=== PATIENT | female | born 1955 | race Two or more races ===

== ENCOUNTER → 2017-11-07 | Outpatient (CLI) | payer OTHER ==
[~2017-11-07] MED LIST: ACET500T33 PO; AMOX500C PO; CALC500T54 PO; CHOL100016 PO; HYDR-2758 PO; IBUP-1060 PO; LISI1TAB3 PO; METF500T4 PO; POTA20TA12 PO; SIMV20TA3 PO
--- NOTE | 2017-11-07 14:19 | KCIC ---
Bilateral digital screening mammograms: Reason for examination: Routine screening. Comparison is made to previous studies dated back to 01/30/2013 and 02/01/2012. Interpretation was made with the benefit of CAD. The skin and nipples show no abnormalities. No abnormal axillary lymph nodes are seen. The breast parenchyma shows scattered fibroglandular density. (Breast density: Category B.) There are no dominant masses, suspicious calcifications or architectural distortions. Some benign calcifications are present. Impression: No evidence of malignancy. Recommend routine screening. BI-RADS category 2: Benign "Our facility is accredited by the [employer] Mammography Program." This patient's information has been entered into a reminder system for the patient to be notified with the results of her examination and a target date for the next mammogram. Electronically signed by: Francy Gmoez MD (11/07/2017 2:16 PM) [facility]
== END | disposition home or self-care (01) ==
LOC: KCIC MAMMO 10:45
PROVIDERS: ATTEND Obstetrics & Gynecology
DX: Z12.31 Encounter for screening mammogram for malignant neoplasm of breast (principal)
CPT/HCPCS: G0202; 77067

== ENCOUNTER → 2018-07-25 | Outpatient (CLI) | payer OTHER, MEDICARE ==
[~2018-07-25] MED LIST changes: +CELE200C PO; +FERR325T14 PO; +METF500T16 PO; -METF500T4 PO; +TRAM50TA PO
[2018-07-25 08:55] LABS: BILIRUBIN,URINE NEGATIVE (NEG); CLARITY,URINE CLEAR; COLOR,URINE YELLOW; NITRITE,URINE NEGATIVE (NEG); PROTEIN,URINE NEGATIVE (NEG-TRACE)
[2018-07-25 09:17] LABS: BASO % 0 % (0-3); EOS # 0.2 x10^3/uL (0.0-0.7); EOS % 2 % (0-3); HEMATOCRIT 35.5 % (36.0-47.0); HEMOGLOBIN 11.9 g/dL (12.0-15.5); LYMPH # 1.4 x10^3/uL (1.0-4.8); LYMPH % 19 % (24-48); MEAN CORPUSCULAR HEMOGLOBIN 28 pg (25-35); MEAN CORPUSCULAR HGB CONC 34 g/dL (31-37); MEAN CORPUSCULAR VOLUME 84 fL (79-100); MONO # 0.4 x10^3/uL (0.0-1.1); MONO % 6 % (0-9); NEUT # 5.2 x10^3uL (1.8-7.7); NEUT % 72 % (31-73); PLATELET COUNT 236 x10^3/uL (140-400); RED BLOOD COUNT 4.21 x10^6/uL (3.50-5.40); RED CELL DISTRIBUTION WIDTH 14.2 % (11.5-14.5); WHITE BLOOD COUNT 7.2 x10^3/uL (4.0-11.0)
[2018-07-25 09:29] LABS: ALBUMIN 3.6 g/dL (3.4-5.0); CALCIUM 9.4 mg/dL (8.5-10.1); CREATININE 0.8 mg/dL (0.6-1.0); POTASSIUM 3.7 mmol/L (3.5-5.1)
[2018-07-25 09:30] LABS: PROTHROMBIN TIME PATIENT 12.9 SEC (11.7-14.0)
[2018-07-25 09:32] LABS: BACTERIA,URINE FEW /HPF (0-FEW); SQUAMOUS EPITHELIAL CELL,UR FEW /LPF
--- NOTE | 2018-07-25 11:54 | EKG ---
[facility] [address] [place] [address] Test Date: 2018-07-25 Test Time: 11:48:27 Pat Name: ALBA HARDEN Department: Room: Gender: F Marketing Reporting Analyst: MADDY : 1955 Requested By: TAMIA SALES Order Number: [id number] Reading MD: Serg Pagan MD Measurements Intervals Mcdonald Rate: 76 P: -42 TN: 154 QRS: 8 QRSD: 64 T: 42 QT: 356 QTc: 405 Interpretive Statements SINUS RHYTHM Electronically Signed On 07-25-2018 12:38:08 CDT by Serg Pagan MD
--- NOTE | 2018-07-25 16:34 | RAD ---
AP and Lateral Views of the Chest 07/25/2018 12:54 PM Indication: PRE OP RIGHT LEFT KNEE REPLACEMENT ON 08/15/18
HX OF HYPERTENSION Comparison: None Findings: There is no focal consolidation or infiltrate identified. The cardiomediastinal silhouette is within normal limits. There is no evidence of pneumothorax or pleural effusion. No acute osseous abnormalities are identified. Impression: No evidence of acute cardiopulmonary process. Electronically signed by: Ebenezer Pacheco MD (07/25/2018 4:31 PM) [facility]
[2018-07-26 04:18] LABS: HEMOGLOBIN A1C 5.6 % (4.8-5.6)
== END | disposition home or self-care (01) ==
LOC: SURGPAT 11:43
PROVIDERS: ATTEND Orthopaedic Surgery
DX: Z01.818 Encounter for other preprocedural examination (principal); I10 Essential (primary) hypertension; E11.9 Type 2 diabetes mellitus without complications; Z90.710 Acquired absence of both cervix and uterus
CPT/HCPCS: 36415; 71046; 80048; 81001; 82040; 82306; 83036; 85025; 85610; 85651; 85730; 87086; 87641; 93005

== ENCOUNTER → 2018-08-11 | Outpatient (CLI) | payer MEDICARE, OTHER ==
--- NOTE | 2018-08-11 14:45 | CARD ---
MR#: [id number] Date of Study: 08/11/2018 Ordering Physician: BHUMI ROD, Referring Physician: BHUMI ROD, Tech: Susi Clark INESSA APPROVED REPORT EXAM: Two-dimensional and M-mode echocardiogram with Doppler and color Doppler. Other Information Quality : Fair INDICATION Hypertension/HCVD Pre-Op 2D DIMENSIONS Left Atrium(2D)2.7 (1.6-4.0cm)IVSd0.9 (0.7-1.1cm) Aortic Root(2D)2.2 (2.0-3.7cm)LVDd4.0 (3.9-5.9cm) LVOT Diameter2.0 (1.8-2.4cm)PWd0.9 (0.7-1.1cm) LVDs3.1 (2.5-4.0cm)FS (%) 30.0 % SV32.4 mlLVEF(%)60.0 (>50%) Aortic Valve AoV Peak Tony.149.1cm/sAoV VTI29.7cm AO Peak GR.8.9mmHgLVOT Peak Tony.142.8cm/s LVOT VTI 27.07cmAO Mean GR.5mmHg PAT (VMAX)3.34wj6FKD (VTI)2.98cm2 Mitral Valve MV E Sggzwilu714.2cm/sMV A Kdvplucc987.2cm/s E/A Ratio0.8 LEFT VENTRICLE The left ventricle is normal size. There is normal left ventricular wall thickness. The left ventricu lar systolic function is normal. The Ejection Fraction is 60-65%. There is normal LV segmental wall m otion. Transmitral Doppler flow pattern is Grade I-abnormal relaxation pattern. RIGHT VENTRICLE The right ventricle is normal size. The right ventricular systolic function is normal. ATRIA The left atrium size is normal. The right atrium size is normal. The interatrial septum is intact wit h no evidence for an atrial septal defect or patent foramen ovale as noted on 2-D or Doppler imaging. AORTIC VALVE The aortic valve is calcified but opens well. Doppler and Color Flow revealed trace aortic regurgitat ion. There is no significant aortic valvular stenosis. MITRAL VALVE The mitral valve is calcified but opens well. There is no evidence of mitral valve prolapse. There is no mitral valve stenosis. Doppler and Color Flow revealed no mitral valve regurgitation noted. TRICUSPID VALVE The tricuspid valve is normal in structure and function. Doppler and Color Flow revealed trace tricus pid regurgitation. There is no tricuspid valve stenosis. PULMONIC VALVE The pulmonic valve is not well visualized. Doppler and Color Flow revealed no pulmonic valvular regur gitation. There is no pulmonic valvular stenosis. GREAT VESSELS The aortic root is normal in size. The ascending aorta is normal in size. The IVC is normal in size a nd collapses >50% with inspiration. PERICARDIAL EFFUSION There is no evidence of significant pericardial effusion. Critical Notification Critical Value: No <Conclusion> The left ventricular systolic function is normal. The Ejection Fraction is 60-65%. There is normal LV segmental wall motion. Transmitral Doppler flow pattern is Grade I-abnormal relaxation pattern. Trace aortic regurgitation. Trace tricuspid regurgitation. There is no evidence of significant pericardial effusion. Signed by : Ayden Hernandez, Electronically Approved : 08/11/2018 14:44:06
== END | disposition home or self-care (01) ==
LOC: ECHO 12:49
PROVIDERS: ATTEND Internal Medicine Cardiovascular Disease
DX: Z01.818 Encounter for other preprocedural examination (principal); I10 Essential (primary) hypertension; E11.9 Type 2 diabetes mellitus without complications; E78.5 Hyperlipidemia, unspecified; Z90.710 Acquired absence of both cervix and uterus
CPT/HCPCS: 93306

== ENCOUNTER → 2019-03-13 | Outpatient (CLI) | payer MEDICARE, OTHER ==
[2018-08-18 13:09] VITALS: BP 105/59
[~2019-03-13] MED LIST changes: +ASPI325T11 PO; +ASPI325T8 PO; -HYDR-2758 PO; +HYDR-2761 PO; +OXYC1TAB15 PO; +SERT50TA PO
[2019-03-13 14:01] LABS: BILIRUBIN,URINE NEGATIVE (NEG); CLARITY,URINE CLEAR; COLOR,URINE YELLOW; NITRITE,URINE NEGATIVE (NEG); PROTEIN,URINE NEGATIVE (NEG-TRACE); UROBILINOGEN,URINE 0.2 mg/dL (0.2 mg/dL)
[2019-03-13 14:07] LABS: BACTERIA,URINE 0 /HPF (0-FEW); RBC,URINE 0 /HPF (0-2); SQUAMOUS EPITHELIAL CELL,UR OCC /LPF
[2019-03-13 14:29] LABS: BASO % 1 % (0-3); EOS # 0.3 x10^3/uL (0.0-0.7); EOS % 4 % (0-3); HEMATOCRIT 35.7 % (36.0-47.0); HEMOGLOBIN 11.5 g/dL (12.0-15.5); LYMPH % 26 % (24-48); MEAN CORPUSCULAR HEMOGLOBIN 27 pg (25-35); MEAN CORPUSCULAR HGB CONC 32 g/dL (31-37); MEAN CORPUSCULAR VOLUME 84 fL (79-100); MONO # 0.5 x10^3/uL (0.0-1.1); MONO % 7 % (0-9); NEUT % 64 % (31-73); PLATELET COUNT 228 x10^3/uL (140-400); RED BLOOD COUNT 4.26 x10^6/uL (3.50-5.40); RED CELL DISTRIBUTION WIDTH 14.6 % (11.5-14.5); WHITE BLOOD COUNT 7.9 x10^3/uL (4.0-11.0)
[2019-03-13 14:43] LABS: ALBUMIN 3.5 g/dL (3.4-5.0); CALCIUM 9.9 mg/dL (8.5-10.1); CREATININE 0.8 mg/dL (0.6-1.0); POTASSIUM 4.4 mmol/L (3.5-5.1)
== END | disposition home or self-care (01) ==
LOC: SURGPAT 13:15
PROVIDERS: ATTEND Orthopaedic Surgery
DX: Z01.818 Encounter for other preprocedural examination (principal); M17.11 Unilateral primary osteoarthritis, right knee
CPT/HCPCS: 36415; 80048; 81001; 82040; 82306; 83036; 85025; 85610; 85651; 85730; 87086; 87641

== ENCOUNTER 2019-04-03 05:35 | Inpatient (IN) | payer MEDICARE, OTHER ==
--- NOTE | 2019-04-02 16:41 | PDOC1 ---
History and Physical Date of Admission Date of Admission 04/03/2019 Identification/Chief Complaint Chief Complaint Right knee pain Source Source: Chart review History of Present Illness History of Present Illness 64-year-old who had a left total knee arthroplasty in July 2018. She is doing great with that. She is almost off of the cane at times. The right knee is now the one that bothers her. We discussed the potential for right total knee arthroplasty for her end-stage right knee osteoarthritis. She has previously had nonoperative treatment for the arthritis in the right knee. Past Medical History Cardiovascular: HTN, Hyperlipidemia Endocrine: Diabetes Past Surgical History Past Surgical History: Total hip replacement, Total knee replacement (left knee July 2018), Hysterectomy Family History Family History: Alcohol Abuse, Diabetes, Other Social History Smoke: Quit ALCOHOL: none Drugs: None Current Medications Current Medications Current Medications Ondansetron HCl (Zofran) 4 mg PRN Q6HRS PRN IV NAUSEA/VOMITING; Start 04/03/19 at 07:00; Stop 04/04/19 at 06:59 Fentanyl Citrate (Fentanyl 2ml Vial) 25 mcg PRN Q5MIN PRN IV MILD PAIN; Start 04/03/19 at 07:00; Stop 04/04/19 at 06:59 Fentanyl Citrate (Fentanyl 2ml Vial) 50 mcg PRN Q5MIN PRN IV MODERATE TO SEVERE PAIN; Start 04/03/19 at 07:00; Stop 04/04/19 at 06:59 Morphine Sulfate (Morphine Sulfate) 1 mg PRN Q10MIN PRN IV SEVERE PAIN; Start 04/03/19 at 07:00; Stop 04/04/19 at 06:59 Ringer's Solution 1,000 ml @ 30 mls/hr Q24H IV ; Start 04/03/19 at 07:00; Stop 04/03/19 at 18:59 Lidocaine HCl (Xylocaine-Mpf 1% 2ml Vial) 2 ml PRN 1X PRN ID PRIOR TO IV START; Start 04/03/19 at 07:00; Stop 04/04/19 at 06:59 Hydromorphone HCl (Dilaudid) 0.5 mg PRN Q10MIN PRN IV SEV PAIN, Second choice; Start 04/03/19 at 07:00; Stop 04/04/19 at 06:59 Prochlorperazine Edisylate (Compazine) 5 mg PACU PRN PRN IV NAUSEA, MRX1; Start 04/03/19 at 07:00; Stop 04/04/19 at 06:59 Morphine Sulfate 5 mg/Ketorolac Tromethamine 30 mg/Ropivacaine 60 ml/Epinephrine HCl 0.5 mg/Sodium Chloride 100 ml @ 100 mls/hr 1X ONCE INT ART ; Start 04/03/19 at 06:00; Stop 04/03/19 at 06:59 Active Scripts Active Reported Zoloft (Sertraline Hcl) 50 Mg Tablet 1 Tab PO DAILY Aspirin 325 Mg Tablet 1 Tab PO DAILY Ferrous Sulfate 325 Mg Tablet 325 Mg PO DAILY Celebrex (Celecoxib) 200 Mg Capsule 200 Mg PO PRN DAILY PRN 30 Days Vitamin D3 (Cholecalciferol (Vitamin D3)) 1,000 Unit Tab.chew 1,000 Unit PO BID Lisinopril-Hctz 10-12.5 Mg Tab (Lisinopril/Hydrochlorothiazide) 1 Each Tablet 1 Each PO DAILY Simvastatin 20 Mg Tablet 40 Mg PO HS Metformin Hcl 500 Mg Tablet 500 Mg PO BID Allergies Allergies: Coded Allergies: No Known Drug Allergies (Unverified , 02/19/14) Physical Exam General: Alert, Cooperative, No acute distress HEENT: Atraumatic Heart: RRR Abdomen: Soft Extremities: No clubbing, No cyanosis, No edema, Normal pulses, Other (The RIGHT knee shows a mildly antalgic gait. There is varus alignment. No masses. No detectable effusion. Tenderness on the joint lines. Range of motion is 5-115 degrees. There is crepitus with range of motion, and pain at the extremes of motion. The knee is stable to varus and valgus stress without subluxation or laxity. Muscle strength is slightly weak for the quadriceps 4+/5 which may be due to pain or avoidance, and does not seem neurogenic, and the muscle tone and bulk is slightly decreased. The hamstring strength is 5/5. The skin is normal with no scars, rashes, lesions or ulcers. Light touch sensation is intact. No edema and no varicosities. Dorsalis pedis pulse is intact and capillary refill is normal.) Skin: No rashes, No breakdown, No significant lesion Neuro: Normal speech, Sensation intact Images Images [facility] [address] [place] [address] IMAGING REPORT Signed PATIENT: ALBA HARDEN ACCOUNT: [id number] : 1955 LOCATION: [facility] AGE: 63 SEX: F EXAM STATUS: REG CLI ORD. PHYSICIAN: TAMIA SALES MD REASON: PROCEDURE: KNEE RIGHT 3V EXAM: 1. AP, lateral and merchant view right knee 2. AP view left knee DATE: 02/08/2019 1:47 PM INDICATION: RIGHT KNEE PAIN FOR A LONG TIME. NO KNOWN INJURY. PT HAD LEFT KNEE REPLACED LAST YEAR COMPARISON: No Prior FINDINGS: Right knee: Right knee osteophytes arthritis with moderate medial compartment joint space narrowing and mild lateral compartment joint space narrowing with tricompartmental osteophytes. Small right knee joint effusion. Bilateral patellofemoral joint space narrowing with otherwise neutral patellar tracking. Decreased bone mineral density. Single AP view left knee demonstrates changes of left total knee arthroplasty, in good alignment without definite hardware complication. IMPRESSION: 1. Right knee joint osteoarthritis, medial compartment predominance Electronically signed by: Elieser Layne MD (02/08/2019 3:24 PM) [facility] DICTATED and SIGNED BY: ELIESER LAYNE MD DATE: 02/08/19 1524 VTE Prophylaxis Ordered VTE Prophylaxis Devices: Yes VTE Pharmacological Prophylaxi: Yes Assessment/Plan Assessment/Plan She and I discussed the risks benefits and alternatives to a right total knee arthroplasty. She is doing well with her left total knee arthroplasty. She still occasionally uses a cane, because of the right knee arthritis. I recommended right total knee arthroplasty. We discussed the potential risks of infection, neurovascular injury, bleeding, blood clots, need for revision surgery, or other potential surgical or anesthetic complications. all of her questions about surgery were answered and she desires to proceed. We can schedule that at a mutually convenient date. She denies medical or metal sensitivity.she did have some skin issues with the left total knee, such as blisters and we will be very careful to protect the soft tissues when we do her right knee arthroplasty. Her left knee has sizes 4 left bicruciate stabilized Journey II BCS Oxinium femoral component, size 4 left Journey nonporous tibial baseplate, size 3-4 11 mm left Journey II BCS XLPE articular insert, 32 mm oval Ellen II resurfacing patellar component TAMIA SALES MD April 02, 2019 16:41
[2019-04-03] VITALS (9 sets, daily range): BP systolic 93–116; BP diastolic 50–67
[~2019-04-03] VITALS: Ht 172.7 cm; Wt 98.9 kg
[~2019-04-03 05:35] MED LIST changes: -OXYC1TAB15 PO
[2019-04-03] MEDS ORDERED: CELECOXIB 100 MG CAPSULE. PO PRN (06:00)
[2019-04-03] MEDS ORDERED: TRANEXAMIC ACID 1,000 MG in IV NORMAL SALINE 50ML 50 ML INJ ONE ×2 (06:00→08:00)
[2019-04-03] MEDS ORDERED: HYDROcodone/APAP 7.5/325MG 1 TAB TABLET PO PRN (06:00)
[2019-04-03] MEDS ORDERED: MORPHINE SULFATE 5 MG, KETOROLAC 30MG VIAL 30 MG, ROPIVacaine 0.5% PF 60 ML, EPINEPHrin... INT ART ONE ×5 (06:00)
[2019-04-03] MEDS ORDERED: VANCOMYCIN 1 GM VIAL. ONE ×2 (06:03→06:29)
[2019-04-03] MEDS ORDERED: TOBRAMYCIN POWDER 1.2 GM VIAL. ONE (06:04)
[2019-04-03] MEDS ORDERED: MORPHINE SULFATE 2 MG/ML VIAL. IV PRN ×2 (07:00→09:45)
[2019-04-03] MEDS ORDERED: IV RINGERS,LACTATED 1000ML 1,000 ML IV SCH (07:00)
[2019-04-03] MEDS ORDERED: fentaNYL PF VIAL 100 MCG/2 ML VIAL IV PRN ×2 (07:00→09:45)
[2019-04-03] MEDS ORDERED: HYDROmorphone 2 MG/ML VIAL IV PRN (07:00)
[2019-04-03] MEDS ORDERED: LIDOCAINE 1% PF 2 ML VIAL. ID PRN (07:00)
[2019-04-03] MEDS ORDERED: PROCHLORPERAZINE 10 MG/2 ML VIAL. IV PRN (07:00)
[2019-04-03] MEDS ORDERED: ONDANSETRON PF 4 MG/2 ML VIAL. IV PRN (07:00)
[2019-04-03] MEDS ORDERED: MIDAZOLAM HCL/PF 2 MG/2 ML VIAL. ONE (07:09)
[2019-04-03] MEDS ORDERED: PROPOFOL 20 ML IV ONE (07:09)
[2019-04-03] MEDS ORDERED: FAMOTIDINE 20 MG/2 ML VIAL ONE (07:09)
[2019-04-03] MEDS ORDERED: DEXAMETHASONE SOD PHOS 4 MG/ML VIAL ONE (07:09)
[2019-04-03] MEDS ORDERED: ROCURONIUM 50 MG/5 ML VIAL. ONE (07:09)
[2019-04-03] MEDS ORDERED: ONDANSETRON PF 4 MG/2 ML VIAL. ONE (07:09)
[2019-04-03] MEDS ORDERED: LIDOCAINE 2% PF 5 ML VIAL. ONE (07:09)
[2019-04-03] MEDS ORDERED: fentaNYL PF VIAL 100 MCG/2 ML VIAL ONE ×3 (07:09→10:23)
[2019-04-03] MEDS ORDERED: NEOSTIGMINE METHYLSULFATE 5 MG/5 ML SYRINGE. ONE (07:48)
[2019-04-03] MEDS ORDERED: GLYCOPYRROLATE 1 MG/5 ML VIAL. ONE (07:48)
--- NOTE | 2019-04-03 09:43 | PDOC4 ---
Operative Note Operative Note Date of Procedure: April 03, 2019 Pre-Op Diagnosis: Unilateral primary osteoarthritis, right knee. M17.11 Post-Op Diagnosis: same Procedure: right total knee arthroplasty with patella resurfacing, CPT 05251 Surgeon: Tamia Quintanilla MD Coil Strapper: HEATHER Howe (Annie) Anesthesia: General EBL: 150 mL Specimens Obtained: right knee bone and soft tissue Complications: none Implant Company: [employer] Drains: hemovac plus pain catheter Tourniquet time: 54 Minutes Tourniquet Pressure: 350 mm Hg Indications for Procedure: Arthritis pain unrelieved by nonoperative management. Findings: Severe osteoarthritis with bone on bone contact in all three compartments Implants used: Size 4 right bicruciate stabilized Journey II BCS Oxinium femoral component, size 4 right Journey nonporous tibial baseplate, size 3-4 9 mm right Journey II BCS XLPE articular insert, 32 mm oval Ellen II resurfacing patellar component Procedure in Detail: The patient was identified in the preoperative holding area, and the correct right lower extremity was marked by me. The patient was taken to the operating room where the patient was anesthetized by the Department of Anesthesia. Preoperative antibiotics were given intravenously. Tranexamic acid 1 g was given intravenously for intraoperative hemostasis. A "time-out" procedure was performed. The patient was positioned supine on the operative table with a tourniquet on the upper right thigh. The right lower limb was thoroughly scrubbed, then sterile surgical prep solution was applied, and the limb was draped in sterile fashion. An impervious stockinet and adhesive drape were used such that the skin was entirely covered. An Verde leg busch was used. The operating team wore personal exhaust-ventilated hoods. The limb exsanguinated with an Esmarch bandage, and the tourniquet was inflated. A midline skin incision was made with a scalpel using the patella and tibial tubercle as landmarks. Electrocautery was used for hemostasis. My senior agricultural assistant used rake retractors. A medial parapatellar arthrotomy incision was used with extension into the distal quadriceps tendon. The patella was retracted laterally and Hohmann retractors were now used by my senior agricultural assistant. Excess synovium, the menisci, and the cruciate ligaments were resected sharply. The patella was assessed and excess synovium and osteophytes around the patellar articulation were removed. The patella was measured with a caliper, cut freehand with a saw using caliper measurements, sized, and then drilled for an oval three-pegged patella component. A periarticular multimodal ropivacaine anesthetic injection was used in the suprapatellar pouch and distal quadriceps muscle. Whitesides's line and the transepicondylar axis were marked on the femur. An intra-medullary 5 degree cutting guide was pinned to the femur, and a distal femoral cut was made with an oscillating saw. No additional distal femoral resection was required. My senior agricultural assistant held Hohmann retractors and an [facility] retractor to protect the medial and lateral collateral ligaments, the patellar tendon, the skin and the other soft tissues. A posterior referencing guide was applied with external rotation of 3 to match Whitesides line. A 5-in-1 Christian rney II cutting guide was then applied and pinned to the femur. The posterior, anterior, and all chamfer cuts were made with the oscillating saw. An extramedullary guide was pinned to the tibia and rotational alignment and the planned resection thickness assessed. An external alignment monica was used to verify the planned cut in the varus-valgus plane and regarding posterior slope referencing the tibial tubercle, the tibial shaft, the ankle joint, and the second metatarsal. The upper tibia was cut made with an oscillating saw. My senior agricultural assistant held Hohmann retractors and a posterior cruciate ligament retractor to protect the medial and lateral collateral ligaments, the patellar tendon, the skin, the peroneal nerve and the other soft tissues. The upper tibia was sized with a trial baseplate. The posterior compartment was cleared of osteophytes and loose bodies. The periarticular anesthetic injection was used in the posterior compartment. The box cut for a posterior stabilized component was made. A preliminary reduction was performed with a trial femur, trial tibial baseplate and trial polyethylene. Soft-tissue balancing was now performed, and extension and rotation of the alignments was checked using a guide monica in the tibial trial and a guide pin in the femur. No additional releases were required. The stability was assessed using different thicknesses of tibial articular surface to find satisfactory stability and good range of motion. The rotation of the tibial component was marked on the upper tibia. Final trial reduction was now performed verifying patella tracking and tibiofemoral stability and alignment. The tibia preparation was completed with a drill, saw, and fin punch at the previously noted rotation. The final implants were verified and opened. Outer gloves were changed by the operating team. The bone cuts were washed thoroughly with the Jeanne InterPulse device and dried. Two packages of Webb [employer] Nephew Rally HV bone cement were mixed in powdered form with Vancomycin 1gm and Tobramycin 1.2 gm, and then vacuum-mixed with the monomer, and placed into a cement gun. The cut surfaces of the bone were thoroughly dried with Garibay-tip suction and with laparotomy sponges for cement interdigitation. The final components were cemented into place. The knee was kept at full extension while the cement hardened, and excess cement was removed. A Betadine lavage was used throughout the surgical exposure, and allowed to sit in contact with the exposed joint surfaces for three minutes while the cement hardened. Tranexamic acid 1 g was redosed intravenously for additional intraoperative hemostasis. The tourniquet was released, and electrocautery was used for hemostasis. A final periarticular anesthetic injection was used for pain relief. A final check of [id number] and stability was made, and the polyethylene implant final size was chosen. The polyethylene implant was secured to the tibial baseplate, and the knee was reduced a final time and range of motion and stability was confirmed. Thorough irrigation was used. Hemovac and pain catheter were used. Topical Vancomycin 1 gm was used during the closure. The arthrotomy was closed with interrupted [id number] #1 PDS suture. The arthrotomy incision was then run with #1 STRATAFIX Symmetric PDS Plus Knotless suture. The subcutaneous tissues were reapproximated initially with 2-0 PDS . Next the subcuticular layer was reapproximated in a running fashion with #3-0 Stratafix suture by my senior agricultural assistant. The skin incision was then covered and reinforced with Acticoat, followed by a CHARLOTTE single use negative pressure wound therapy dressing Soft roll and an Antonino wrap were applied. Needle and sponge counts were correct. There were no apparent complications. The patient returned to the recovery room in stable condition. TAMIA QUINTANILLA MD April 03, 2019 09:43
[2019-04-03] MEDS ORDERED: METOCLOPRAMIDE HCL 10 MG/2 ML VIAL. IV PRN (09:45)
[2019-04-03] MEDS ORDERED: CALCIUM CARBONATE 500 MG TAB.CHEW PO PRN (09:45)
[2019-04-03] MEDS ORDERED: PROCHLORPERAZINE 5 MG TABLET. PO PRN (09:45)
[2019-04-03] MEDS ORDERED: ZOLPIDEM 5 MG TABLET. PO PRN (09:45)
[2019-04-03] MEDS ORDERED: DEXTROSE 50% 25 GM / 50ML DISP.SYRIN. IV PRN (09:45)
[2019-04-03] MEDS ORDERED: diphenhydrAMINE 50 MG/ML VIAL IV PRN (09:45)
[2019-04-03] MEDS ORDERED: 0.9 % SODIUM CHLORIDE 10 ML DISP.SYRIN. IV PRN (09:45)
[2019-04-03] MEDS ORDERED: SEVOFLURANE > 120 MINUTES. IH ONE (09:51)
[2019-04-03] MEDS: fentaNYL PF VIAL 100 MCG/2 ML VIAL IV PRN ×2 (10:28→10:38)
--- NOTE | 2019-04-03 10:41 | RAD ---
Two-view right knee dated 04/03/2019. Comparison made to 02/08/2019. CLINICAL INDICATION: Postop knee replacement. FINDINGS: AP and lateral views obtained. Interval total knee arthroplasty. Femoral and tibial components are intact. No periprosthetic fracture or malalignment. Postsurgical changes of the patella. There is diffuse soft tissue swelling and soft tissue gas with suprapatellar drain in place. IMPRESSION: Status post right knee arthroplasty. Electronically signed by: Levi Tovar MD (04/03/2019 10:38 AM) [facility]
[2019-04-03] MEDS: ONDANSETRON ODT 4 MG TAB.RAPDIS. PO SCH ×2 (12:00→18:00)
[2019-04-03] MEDS: ONDANSETRON PF 4 MG/2 ML VIAL. IV SCH ×2 (12:00→18:00)
[2019-04-03] MEDS ORDERED: IV NORMAL SALINE 1000ML BAG 1,000 ML IV SCH (12:00)
--- NOTE | 2019-04-03 12:13 | NUR ---
received from recovery; she needs to use bathroom. ambulated to bathroom and sits in the chair. cousin and brother at bedside. she has good motion, sensation and pulses bilateral lower extremities. denies nausea and was given coffee per her request.
[2019-04-03] MEDS: oxyCODONE/APAP 5/325 1 TAB TABLET PO PRN ×2 (13:44→21:07)
[2019-04-03] MEDS: metFORMIN 500 MG TABLET PO SCH (17:02)
[2019-04-03] MEDS: FERROUS SULFATE 325 MG TABLET. PO SCH (17:02)
[2019-04-03] MEDS: KETOROLAC 30MG VIAL 30 MG, BUPIVACAINE MPF 0.25% 20 ML, EPINEPHrine 0.5 MG in TOTAL VOL... INT ART SCH (17:56)
--- NOTE | 2019-04-03 18:03 | NUR ---
Zofran IV/po held no nausea or vomiting
[2019-04-03] MEDS: SIMVASTATIN 40 MG TABLET. PO SCH (20:30)
[2019-04-03] MEDS: CHOLECALCIFEROL (VITAMIN D3) 1,000 UNIT TABLET PO SCH (20:30)
[2019-04-03] MEDS: CELECOXIB 100 MG CAPSULE. PO SCH (20:30)
[2019-04-03] MEDS: ASPIRIN ENTERIC COATED 325 MG TABLET.DR. PO SCH (20:30)
[2019-04-04 02:57] VITALS: BP 95/53
[2019-04-04 05:55] VITALS: BP 108/58
[2019-04-04] MEDS: KETOROLAC 30MG VIAL 30 MG, BUPIVACAINE MPF 0.25% 20 ML, EPINEPHrine 0.5 MG in TOTAL VOL... INT ART SCH (05:57)
[2019-04-04] MEDS ORDERED: MAGNESIUM HYDROXIDE 2,400 MG/30 ML ORAL.SUSP. PO PRN (06:00)
[2019-04-04] MEDS: ONDANSETRON ODT 4 MG TAB.RAPDIS. PO SCH ×2 (06:19)
[2019-04-04] MEDS: ONDANSETRON PF 4 MG/2 ML VIAL. IV SCH ×2 (06:19)
--- NOTE | 2019-04-04 07:58 | PDOC ---
ORTHO PROGRESS NOTES Subjective Patient with no complaints of pain this morning and states feeling well. Post-op Day: 1 Procedure L TKA Vitals Vital Signs Date Time Temp Pulse Resp B/P (MAP) Pulse Ox O2 Delivery O2 Flow Rate FiO2 04/04/19 05:55 98.1 73 18 108/58 (75) 96 Room Air 98.1 04/03/19 10:15 10 Labs Laboratory Tests Test 04/03/19 10:51 04/03/19 16:16 04/03/19 20:34 04/04/19 06:17 Glucose (Fingerstick) 180 mg/dL (70-99) 147 mg/dL (70-99) 187 mg/dL (70-99) 122 mg/dL (70-99) Laboratory Tests Test 04/03/19 10:51 04/03/19 16:16 04/03/19 20:34 04/04/19 06:17 Glucose (Fingerstick) 180 mg/dL (70-99) 147 mg/dL (70-99) 187 mg/dL (70-99) 122 mg/dL (70-99) Notes awake and alert moving extremities well Assessment and Plan POD # 1 S/P L TKA motor and sensory intact distally dressing dry and intact PT today. JUAN A [employer] SUPERVISOR April 04, 2019 07:58
[2019-04-04 08:06] VITALS: BP 102/61
[2019-04-04] MEDS: FERROUS SULFATE 325 MG TABLET. PO SCH ×2 (08:08→16:47)
[2019-04-04] MEDS: CHOLECALCIFEROL (VITAMIN D3) 1,000 UNIT TABLET PO SCH ×2 (08:08→20:38)
[2019-04-04] MEDS: CELECOXIB 100 MG CAPSULE. PO SCH ×2 (08:08→20:38)
[2019-04-04] MEDS: metFORMIN 500 MG TABLET PO SCH ×2 (08:08→16:47)
[2019-04-04] MEDS: SERTRALINE 50 MG TABLET. PO SCH (08:08)
[2019-04-04] MEDS: MULTIVITAMIN with MINERAL TABLET. PO SCH (08:08)
[2019-04-04] MEDS: SENNOSIDES/DOCUSATE 8.6/50MG TABLET. PO SCH (08:08)
[2019-04-04] MEDS: ASPIRIN ENTERIC COATED 325 MG TABLET.DR. PO SCH ×2 (08:08→20:38)
[2019-04-04] MEDS: hydroCHLOROthiazide 12.5 MG CAPSULE PO SCH (08:11)
[2019-04-04] MEDS: LISINOPRIL 10 MG TABLET PO SCH (08:11)
[2019-04-04] MEDS ORDERED: LISINOPRIL PO SCH (09:00)
[2019-04-04] MEDS ORDERED: HYDROCHLOROTHIAZIDE PO SCH (09:00)
[2019-04-04] MEDS ORDERED: [UNRECOGNIZED DRUG - OTHER] PO SCH (09:00)
[2019-04-04 09:27] LABS: HEMATOCRIT 29.5 % (36.0-47.0); HEMOGLOBIN 9.4 g/dL (12.0-15.5)
[2019-04-04] MEDS: oxyCODONE/APAP 5/325 1 TAB TABLET PO PRN ×3 (09:41→20:39)
[2019-04-04] MEDS ORDERED: ONDANSETRON ODT 4 MG TAB.RAPDIS. PO PRN (12:00)
[2019-04-04] MEDS ORDERED: ONDANSETRON PF 4 MG/2 ML VIAL. IV PRN (12:00)
--- NOTE | 2019-04-04 15:55 | NUR ---
HEMOVAC & IAC DISCONTINUED PER ORDER, NOTED BLISTER ON MEDIAL SIDE OF KNEE, INTACT, WILL NOTIFY DR. SALES ON ROUNDS, TOLERATED PROCEDURE WELL.
[2019-04-04] MEDS ORDERED: BISACODYL 10 MG SUPP.RECT. PR PRN (16:00)
[2019-04-04 17:59] VITALS: BP 94/50
[2019-04-04 20:25] VITALS: BP 108/58
[2019-04-04] MEDS: SIMVASTATIN 40 MG TABLET. PO SCH (20:38)
--- NOTE | 2019-04-04 20:39 | NUR ---
PATIENT REFUSED FSBS.
--- NOTE | 2019-04-05 05:07 | NUR ---
PATIENT HAS BEEN RESTING QUIETLY EYES CLOSED, NO COMPLAINTS VERBALIZED. CALL LIGHT REMAINS IN REACH.
[2019-04-05 06:05] VITALS: BP 109/59
[2019-04-05] MEDS: oxyCODONE/APAP 5/325 1 TAB TABLET PO PRN ×5 (06:40→21:29)
[2019-04-05 08:05] LABS: HEMATOCRIT 25.2 % (36.0-47.0); HEMOGLOBIN 8.3 g/dL (12.0-15.5)
--- NOTE | 2019-04-05 08:43 | PDOC ---
PROGRESS NOTES Subjective Subjective Pain controlled. No major complaints. Objective Vital Signs Vital Signs Date Time Temp Pulse Resp B/P (MAP) Pulse Ox O2 Delivery O2 Flow Rate FiO2 04/05/19 08:01 Room Air 10.0 04/05/19 06:40 18 95 04/05/19 06:05 98.4 80 109/59 (76) 98.4 Physical Exam CHARLOTTE dressing intact. Pain catheter and drain have been removed. Calf soft and nontender. Good AROM of ankle. Minimal erythema/warmth, but has one medial clear vesicle/blister (not blood filled, but fluid filled, 2.5 cm x 2.5 cm) at the edge of the CHARLOTTE not touching the incision). Not yet safely ambulating with walker. Requires PT or nursing assistance, and gait belt for safe transition from chair or bed to walker. Labs Laboratory Tests Test 04/03/19 10:51 04/03/19 16:16 04/03/19 20:34 04/04/19 06:17 Glucose (Fingerstick) 180 mg/dL (70-99) 147 mg/dL (70-99) 187 mg/dL (70-99) 122 mg/dL (70-99) Test 04/04/19 08:25 04/04/19 11:44 04/04/19 16:11 04/04/19 20:42 Hemoglobin 9.4 g/dL (12.0-15.5) Hematocrit 29.5 % (36.0-47.0) Mean Corpuscular Hemoglobin Concent 32 g/dL (31-37) Glucose (Fingerstick) 104 mg/dL (70-99) 105 mg/dL (70-99) 127 mg/dL (70-99) Test 04/05/19 06:05 04/05/19 07:39 Glucose (Fingerstick) 84 mg/dL (70-99) Hemoglobin 8.3 g/dL (12.0-15.5) Hematocrit 25.2 % (36.0-47.0) Mean Corpuscular Hemoglobin Concent 33 g/dL (31-37) Laboratory Tests Test 04/04/19 11:44 04/04/19 16:11 04/04/19 20:42 04/05/19 06:05 Glucose (Fingerstick) 104 mg/dL (70-99) 105 mg/dL (70-99) 127 mg/dL (70-99) 84 mg/dL (70-99) Test 04/05/19 07:39 Hemoglobin 8.3 g/dL (12.0-15.5) Hematocrit 25.2 % (36.0-47.0) Mean Corpuscular Hemoglobin Concent 33 g/dL (31-37) Imaging Postoperative x-rays and report reviewed by me and show satisfactory alignment and no apparent complications. Assessment Assessment POD #2 TKA Plan Plan of Care Will have the blister lanced laterally under sterile conditions, then cover with Aquacel foam dressing. Discharge planning for tomorrow. Aspirin 325 mg po BID and mobilization for DVT prophylaxis. TAMIA SALES MD April 05, 2019 08:43
[2019-04-05] MEDS: FERROUS SULFATE 325 MG TABLET. PO SCH ×2 (08:53→16:49)
[2019-04-05] MEDS: SENNOSIDES/DOCUSATE 8.6/50MG TABLET. PO SCH (08:53)
[2019-04-05] MEDS: MULTIVITAMIN with MINERAL TABLET. PO SCH (08:53)
[2019-04-05] MEDS: SERTRALINE 50 MG TABLET. PO SCH (08:53)
[2019-04-05] MEDS: CELECOXIB 100 MG CAPSULE. PO SCH ×2 (08:53→21:28)
[2019-04-05] MEDS: ASPIRIN ENTERIC COATED 325 MG TABLET.DR. PO SCH ×2 (08:53→21:28)
[2019-04-05] MEDS: CHOLECALCIFEROL (VITAMIN D3) 1,000 UNIT TABLET PO SCH ×2 (08:53→21:28)
[2019-04-05] MEDS: metFORMIN 500 MG TABLET PO SCH ×2 (08:53→16:49)
[2019-04-05 08:56] VITALS: BP 98/62
[2019-04-05] MEDS: LISINOPRIL 10 MG TABLET PO SCH (09:00)
[2019-04-05] MEDS: hydroCHLOROthiazide 12.5 MG CAPSULE PO SCH (09:00)
--- NOTE | 2019-04-05 09:49 | NUR ---
Rebecca is up in recliner. Dr. Quintanilla here; informed of blister in the inner aspect of her operative knee. blister cleansed with chlor prep. then deflated with sterile #22 gauge needle with immediate return of serous liquid. cleansed with new chlor prep then Aquacel foam applied
[2019-04-05 18:12] VITALS: BP 80/39
--- NOTE | 2019-04-05 19:06 | PATHOLOGY ---
[facility] Accession Number: [id number] . 01 Material submitted: . knee - RIGHT KNEE BONE. Modifiers: right . 01 Clinical history: . None provided . 02 Diagnosis: Segments of bone and soft tissue, right total knee arthroplasty: - Advanced degenerative arthritis. (JPM:tube draw helper; 04/05/2019) MBR/04/05/2019 . 02 Electronically signed: . Abdiel Good MD, Pathologist NPI- [id number] . 01 Gross description: . Received in formalin labeled "Rebecca Ricardo, right knee bone," are multiple segments of bone, including tibial plateau, measuring 14.2 x 9.7 x 1.8 cm in aggregate dimensions. Soft tissue and meniscus are present. The specimen displays extensive eburnation of the articular surfaces. Administrative Office Specialist bone and soft tissue are submitted in cassette A1, following decalcification. ([facility]; 04/04/2019) XDC/XDC . 02 Pathologist provided ICD-10: M17.11 . 02 CPT . 414854, [id number] Specimen Comment: A courtesy copy of this report has been sent to Specimen Comment: [phone], . Specimen Comment: Report sent to / DR REYNAGA Performed at: 01 [facility] [address], [place] [id number] MD Elmer Hernandez MD Phone: [phone] Performed at: 02 [facility] [address] [place], [place] [id number] MD Abdiel Good MD Phone: [phone]
[2019-04-05] MEDS: SIMVASTATIN 40 MG TABLET. PO SCH (21:28)
--- NOTE | 2019-04-06 01:57 | NUR ---
Percocet given earlier at 2129, patient has been sleeping well since. BP at 1900 was 95/54. Denies being dizzy, SOA or nauseous. Hgb 8.3 this am. Right knee swollen w/ drainage present to foam dressings.
--- NOTE | 2019-04-06 03:40 | NUR ---
Percocet given and assisted to toilet.
[2019-04-06] MEDS: oxyCODONE/APAP 5/325 1 TAB TABLET PO PRN ×3 (03:41→12:36)
[2019-04-06 06:00] VITALS: BP 111/63
[2019-04-06 07:23] LABS: HEMATOCRIT 25.1 % (36.0-47.0); HEMOGLOBIN 8.2 g/dL (12.0-15.5)
[2019-04-06] MEDS: SENNOSIDES/DOCUSATE 8.6/50MG TABLET. PO SCH (07:57)
[2019-04-06] MEDS: FERROUS SULFATE 325 MG TABLET. PO SCH (07:57)
[2019-04-06] MEDS: SERTRALINE 50 MG TABLET. PO SCH (07:57)
[2019-04-06] MEDS: MULTIVITAMIN with MINERAL TABLET. PO SCH (07:57)
[2019-04-06] MEDS: CELECOXIB 100 MG CAPSULE. PO SCH (07:57)
[2019-04-06] MEDS: CHOLECALCIFEROL (VITAMIN D3) 1,000 UNIT TABLET PO SCH (07:57)
[2019-04-06] MEDS: metFORMIN 500 MG TABLET PO SCH (07:57)
[2019-04-06] MEDS: ASPIRIN ENTERIC COATED 325 MG TABLET.DR. PO SCH (07:57)
--- NOTE | 2019-04-06 12:01 | PDOC ---
PROGRESS NOTES Subjective Subjective No complaints. Planning on discharge today to SNU. Objective Vital Signs Vital Signs Date Time Temp Pulse Resp B/P (MAP) Pulse Ox O2 Delivery O2 Flow Rate FiO2 04/06/19 09:00 Room Air 04/06/19 06:00 98.3 84 111/63 (79) 93 98.3 04/06/19 04:45 20 04/05/19 08:01 10.0 Physical Exam CHARLOTTE intact with spotty drainage only. Knee ROM approaching 0-90 already. Good AROM ankle. Calf soft and nontender. Minimal warmth or erythema. Labs Laboratory Tests Test 04/04/19 16:11 04/04/19 20:42 04/05/19 06:05 04/05/19 07:39 Glucose (Fingerstick) 105 mg/dL (70-99) 127 mg/dL (70-99) 84 mg/dL (70-99) Hemoglobin 8.3 g/dL (12.0-15.5) Hematocrit 25.2 % (36.0-47.0) Mean Corpuscular Hemoglobin Concent 33 g/dL (31-37) Test 04/05/19 11:53 04/05/19 16:35 04/05/19 21:32 04/06/19 06:43 Glucose (Fingerstick) 85 mg/dL (70-99) 127 mg/dL (70-99) 100 mg/dL (70-99) 104 mg/dL (70-99) Test 04/06/19 07:05 04/06/19 11:27 Hemoglobin 8.2 g/dL (12.0-15.5) Hematocrit 25.1 % (36.0-47.0) Mean Corpuscular Hemoglobin Concent 33 g/dL (31-37) Glucose (Fingerstick) 89 mg/dL (70-99) Laboratory Tests Test 04/05/19 16:35 04/05/19 21:32 04/06/19 06:43 04/06/19 07:05 Glucose (Fingerstick) 127 mg/dL (70-99) 100 mg/dL (70-99) 104 mg/dL (70-99) Hemoglobin 8.2 g/dL (12.0-15.5) Hematocrit 25.1 % (36.0-47.0) Mean Corpuscular Hemoglobin Concent 33 g/dL (31-37) Test 04/06/19 11:27 Glucose (Fingerstick) 89 mg/dL (70-99) Assessment Assessment POD #3 TKA Plan Plan of Care Discharge planning for today. Continue PT and DVT prophylaxis. F/U 04/13/19 in office. TAMIA SALES MD April 06, 2019 12:01
[2019-04-06] MEDS ORDERED: OXYC1TAB15 PO (12:05)
[2019-04-06] MEDS ORDERED: ASPI325T11 PO (12:05)
--- NOTE | 2019-04-06 12:07 | PDOC3 ---
Discharge Summary Visit Information Date of Admission: April 03, 2019 Date of Discharge: April 06, 2019 Final Diagnosis osteoarthritis right knee aftercare following right knee joint replacement surgery Brief Hospital Course Allergies Allergies Coded Allergies Type Severity Reaction Last Updated Verified No Known Drug Allergies 04/03/19 No Vital Signs Vital Signs Date Time Temp Pulse Resp B/P (MAP) Pulse Ox O2 Delivery O2 Flow Rate FiO2 04/06/19 09:00 Room Air 04/06/19 06:00 98.3 84 111/63 (79) 93 98.3 04/06/19 04:45 20 04/05/19 08:01 10.0 Lab Results Laboratory Tests Test 04/04/19 16:11 04/04/19 20:42 04/05/19 06:05 04/05/19 07:39 Glucose (Fingerstick) 105 mg/dL (70-99) 127 mg/dL (70-99) 84 mg/dL (70-99) Hemoglobin 8.3 g/dL (12.0-15.5) Hematocrit 25.2 % (36.0-47.0) Mean Corpuscular Hemoglobin Concent 33 g/dL (31-37) Test 04/05/19 11:53 04/05/19 16:35 04/05/19 21:32 04/06/19 06:43 Glucose (Fingerstick) 85 mg/dL (70-99) 127 mg/dL (70-99) 100 mg/dL (70-99) 104 mg/dL (70-99) Test 04/06/19 07:05 04/06/19 11:27 Hemoglobin 8.2 g/dL (12.0-15.5) Hematocrit 25.1 % (36.0-47.0) Mean Corpuscular Hemoglobin Concent 33 g/dL (31-37) Glucose (Fingerstick) 89 mg/dL (70-99) Laboratory Tests Test 04/05/19 16:35 04/05/19 21:32 04/06/19 06:43 04/06/19 07:05 Glucose (Fingerstick) 127 mg/dL (70-99) 100 mg/dL (70-99) 104 mg/dL (70-99) Hemoglobin 8.2 g/dL (12.0-15.5) Hematocrit 25.1 % (36.0-47.0) Mean Corpuscular Hemoglobin Concent 33 g/dL (31-37) Test 04/06/19 11:27 Glucose (Fingerstick) 89 mg/dL (70-99) Brief Hospital Course 64 year old who presented with knee osteoarthritis, for elective total knee arthroplasty. The patient underwent total knee arthroplasty under general anesthesia the day of admission. Perioperative antibiotics and DVT prophylaxis were used. Postoperatively physical therapy and case management were consulted. The patient progressed and is stable for discharge. Discharge Information Condition at Discharge: Stable Follow Up: Weeks Disposition/Orders: D/C to Another Facility Scheduled Aspirin (Aspirin), 1 TAB PO DAILY, (Reported) Aspirin (Aspirin Ec), 325 MG PO BID Cholecalciferol (Vitamin D3) (Vitamin D3), 1,000 UNIT PO BID, (Reported) Ferrous Sulfate (Ferrous Sulfate), 325 MG PO DAILY, (Reported) Lisinopril/Hydrochlorothiazide (Lisinopril-Hctz 10-12.5 Mg Tab), 1 EACH PO BORIS LY, (Reported) Metformin Hcl (Metformin Hcl), 500 MG PO BID, (Reported) Sertraline Hcl (Zoloft), 1 TAB PO DAILY, (Reported) Simvastatin (Simvastatin), 40 MG PO HS, (Reported) Scheduled PRN Celecoxib (Celebrex), 200 MG PO PRN DAILY PRN for PAIN, (Reported) Oxycodone/Apap 5-325 (Percocet 5-325 Mg Tablet ), 1-2 TAB PO PRN Q4HRS PRN for PAIN Patient Instructions Patient Instructions Patient Instructions Continue to WBAT with walker. Keep dressing dry and intact. F/U with Dr Quintanilla 04/13/19 at 9:00 a.m. Physical therapy for TKA Continue DVT prophylaxis with aspirin po BID TAMIA QUINTANILLA MD April 06, 2019 12:07
--- NOTE | 2019-04-06 12:09 | SNU/HH DC ---
DISCHARGE ORDERS DISCHARGE INFORMATION: DISCHARGE DATE: April 06, 2019 FINAL DIAGNOSIS osteoarthritis right knee aftercare following right knee joint replacement surgery CONDITION ON DISCHARGE: Stable CODE STATUS: Code Status: Full SHELTER: SNF STAY <30 DAYS: Yes HOSPICE: HOSPICE: No HOSPICE EVAL & TREAT: No LTAC: ADMIT TO LTAC: No POST DISCHARGE ORDERS: ACTIVITY ORDERS: Progressive ambulation WEIGHT BEARING STATUS: Full weight bearing BATHING ORDERS: Shower-keep dressing dry, No Tub Bath until see DIET AFTER DISCHARGE: ADA WOUND/INCISION CARE: Ice to area for comfort, Keep wound/cast CDI, Do not change dressing, Other, see below (Cut CHARLOTTE tubing on Tuesday (7th postop day). Throw away excess tubing and battery pack. Leave remaining CHARLOTTE dressing intact.) CHECKS AFTER DISCHARGE: CHECKS AFTER DISCHARGE: Check blood sugar, ac/hs FOLLOW-UP: PHYSICIAN FOLLOW-UP: With Dr. Quintanilla 04/13/19 at 9:00 a.m. TREATMENT/EQUIPMENT ORDERS: ADAPTIVE EQUIPMENT NEEDED: Walker Physical Therapy For: Evalulation/Treatment Occupational Therapy For: Evaluation/Treatment DISCHARGE MEDICATIONS: Home Meds Active Scripts Oxycodone/Apap 5-325 (PERCOCET 5-325 MG TABLET ) 1 Each Tablet, 1-2 TAB PO PRN Q4HRS PRN for PAIN MDD 12 tablets, #80 TAB Take one or two tablets by mouth every 4 hours as needed for pain Prov:TAMIA QUINTANILLA MD 04/06/19 Aspirin (ASPIRIN EC) 325 Mg Tablet.dr, 325 MG PO BID for prevent blood clots for 30 Days, #60 TAB.SR Take enteric coated aspirin 325 mg tablet twice a day for 30 days. Then can resume usual aspirin dosage. Prov:TAMIA QUINTANILLA MD 04/06/19 Reported Medications Sertraline Hcl (ZOLOFT) 50 Mg Tablet, 1 TAB PO DAILY for depression, #30 TAB 2 Refills 03/13/19 Aspirin (ASPIRIN) 325 Mg Tablet, 1 TAB PO DAILY for heart, #30 TAB 5 Refills 03/13/19 Ferrous Sulfate (FERROUS SULFATE) 325 Mg Tablet, 325 MG PO DAILY, TAB 07/25/18 Celecoxib (CELEBREX) 200 Mg Capsule, 200 MG PO PRN DAILY PRN for PAIN for 30 Days, CAP 0 Refills 07/25/18 Cholecalciferol (Vitamin D3) (VITAMIN D3) 1,000 Unit Tab.chew, 1000 UNIT PO BID for vitamin, TAB.CHEW 02/01/14 Lisinopril/Hydrochlorothiazide (LISINOPRIL-HCTZ 10-12.5 MG TAB) 1 Each Tablet, 1 EACH PO DAILY for htn 01/22/14 Simvastatin (SIMVASTATIN) 20 Mg Tablet, 40 MG PO HS for cholesterol 01/22/14 Metformin Hcl (METFORMIN HCL) 500 Mg Tablet, 500 MG PO BID for diabetes 01/22/14 TAMIA QUINTANILLA MD April 06, 2019 12:09
[2019-04-06 12:27] VITALS: BP 111/63
[2019-04-06 14:29] VITALS: BP 120/67
--- NOTE | 2019-04-06 14:45 | NUR ---
Discharge to [facility] by desmond wheatley.
== END 2019-04-06 14:45 | DRG 470 ==
LOC: OPSVCIP 05:35 → 4 SOUTHEST 11:35
PROVIDERS: ADMIT Orthopaedic Surgery; ATTEND Orthopaedic Surgery
PROC: 0SRC069 Replacement of Right Knee Joint with Oxidized Zirconium on Polyethylene Synthetic Substitute, Cemented, Open Approach (ICD-10-PCS; principal; 2019-04-03 07:10)
DX: M17.11 Unilateral primary osteoarthritis, right knee (principal); E11.9 Type 2 diabetes mellitus without complications; I10 Essential (primary) hypertension; E78.5 Hyperlipidemia, unspecified; Z96.652 Presence of left artificial knee joint; Z96.649 Presence of unspecified artificial hip joint; Z90.710 Acquired absence of both cervix and uterus; Z83.3 Family history of diabetes mellitus; Z87.891 Personal history of nicotine dependence
CPT/HCPCS: 36415; 73560; 82962; 85014; 85018; 86850; 86900; 86901; 88304; 88311; A7015; C1713; J0171; J0696; J1100; J1885; J2001; J2250; J2270; J2405; J2704; J2710; J2795; J3010; J3260; J3370; J3490; J7030; J7120; 97116; 97150; 97530; 97535; A4461; C1769